=== PATIENT | male | born 1980 | race Caucasian/White ===

== ENCOUNTER 2016-08-24 23:02 | Emergency (ER) | payer OTHER ==
[~2016-08-24] VITALS: Ht 172.7 cm; Wt 76.2 kg
[2016-08-24 23:10] VITALS: BP 128/75
--- NOTE | 2016-08-25 01:05 | NUR ---
PT TAKEN TO BED 4
--- NOTE | 2016-08-25 01:14 | NUR ---
35Y/M PATIENT PRESENTS TO ED WITH C/O LOWER BACK PAIN X 1 DAY. PT STATES PAIN STARTED TODAY, NO INJURY, NO FEVER . DENIES N/V/D; SKIN IS PINK/WARM/DRY; AAOX4 WITH EVEN AND STEADY GAIT; LUNGS CLEAR BL; HR EVEN AND REGULAR; PT DENIES ANY FEVER, CP, SOB, OR COUGH AT THIS TIME; PATIENT STATES PAIN OF 3/10 AT THIS TIME; VSS; PATIENT POSITIONED FOR COMFORT; HOB ELEVATED; BEDRAILS UP X2; BED DOWN. ER MD MADE AWARE OF PT STATUS.
--- NOTE | 2016-08-25 01:27 | NUR ---
Dr. Aceves evaluating patient at bedside.
[2016-08-25] MEDS ORDERED: KETOROLAC 30 MG/ML VIAL IM ONE (01:30)
[2016-08-25] MEDS ORDERED: DIAZEPAM 5 MG TAB PO ONE (01:30)
--- NOTE | 2016-08-25 02:51 | NUR ---
Patient discharged with v/s stable. Written and verbal after care instructions given and explained. Patient alert, oriented and verbalized understanding of instructions. Ambulatory with steady gait. All questions addressed prior to discharge. ID band removed. Patient advised to follow up with PMD. Rx of NAPROSYN 500MG AND VALIUM 5MG given. Patient educated on indication of medication including possible reaction and side effects. Opportunity to ask questions provided and answered.
[2016-08-25 02:52] VITALS: BP 131/74
== END 2016-08-25 02:51 | disposition home or self-care (01) ==
LOC: MED 23:02
DX: M54.6 Pain in thoracic spine (principal)
CPT/HCPCS: 71010; 96372; 99283; J1885; Q0092

== ENCOUNTER 2017-09-18 22:03 | Emergency (ER) | payer OTHER ==
[~2017-09-18] VITALS: Ht 172.7 cm; Wt 74.8 kg
[2017-09-18 22:08] VITALS: BP 112/76
--- NOTE | 2017-09-18 22:12 | NUR ---
TO BED # 6 AMBULATORY
--- NOTE | 2017-09-18 22:15 | NUR ---
PATIENT PRESENTS TO ED WITH COUGH, RUNNY NOSE, EVALUATED AT BEDSIDE BY DR. MAZA. PT DENIES N/V/D; SKIN IS PINK/WARM/DRY; AAOX4 WITH EVEN AND STEADY GAIT; LUNGS CLEAR BL; HR EVEN AND REGULAR; PT DENIES ANY FEVER, CP, SOB, OR COUGH AT THIS TIME; PATIENT STATES PAIN OF 0/10 AT THIS TIME; VSS; PATIENT POSITIONED FOR COMFORT; HOB ELEVATED; BEDRAILS UP X1; BED DOWN. ER MD MADE AWARE OF PT STATUS. CONTINUE TO MOONITOR.
[2017-09-18 22:31] VITALS: BP 112/76
--- NOTE | 2017-09-18 22:31 | NUR ---
Patient discharged with v/s stable. Evaluated and discharged by Dr. Connell. Written and verbal after care instructions given and explained. Patient alert, oriented and verbalized understanding of instructions. Ambulatory with steady gait. All questions addressed prior to discharge. ID band removed. Patient advised to follow up with PMD. Rx of aUGMENTIN AND PROMETHAZINE given. Patient educated on indication of medication including possible reaction and side effects. Opportunity to ask questions provided and answered.
== END 2017-09-18 22:31 | disposition home or self-care (01) ==
LOC: MED 22:03
DX: J20.9 Acute bronchitis, unspecified (principal)
CPT/HCPCS: 99283

== ENCOUNTER 2018-08-02 04:53 | Emergency (ER) | payer OTHER ==
[~2018-08-02] VITALS: Ht 172.7 cm; Wt 77.1 kg
[2018-08-02 04:56] VITALS: BP 115/78
--- NOTE | 2018-08-02 04:56 | NUR ---
TO BED # 8 AMBULATORY .
--- NOTE | 2018-08-02 05:00 | NUR ---
PATIENT PRESENTS TO ED WITH C/O SORE THROAT, NON PRODUCTIVE COUGH X 1 DAY . PT DENIES N/V/D; SKIN IS PINK/WARM/DRY; AAOX4 WITH EVEN AND STEADY GAIT; LUNGS CLEAR BL; HR EVEN AND REGULAR; PT DENIES ANY FEVER, CP, SOB, AT THIS TIME; PATIENT STATES PAIN OF 6/10 AT THIS TIME; VSS; PATIENT POSITIONED FOR COMFORT; HOB ELEVATED; BEDRAILS UP X2; BED DOWN. ER MD MADE AWARE OF PT STATUS.
--- NOTE | 2018-08-02 05:05 | NUR ---
Patient being evaluated by physician at bedside.
--- NOTE | 2018-08-02 05:06 | NUR ---
Patient discharged with v/s stable. Written and verbal after care instructions given and explained. N Patient alert, oriented and verbalized understanding of instructions. Ambulatory with steady gait. All questions addressed prior to discharge. ID band removed. Patient advised to follow up with PMD. Rx of PREDNISONE AND MOTRIN given. Patient educated on indication of medication including possible reaction and side effects. Opportunity to ask questions provided and answered.
[2018-08-02 05:08] VITALS: BP 115/78
== END 2018-08-02 05:08 | disposition home or self-care (01) ==
LOC: MED 04:53
DX: J02.9 Acute pharyngitis, unspecified (principal); R07.9 Chest pain, unspecified
CPT/HCPCS: 99283

== ENCOUNTER 2018-08-30 06:05 | Emergency (ER) | payer OTHER ==
[~2018-08-30] VITALS: Ht 167.6 cm; Wt 72.6 kg
[2018-08-30 06:25] VITALS: BP 119/84
--- NOTE | 2018-08-30 06:25 | NUR ---
PT PRESENTS TO ER WITH C/O COUGH, SORE THROAT, AND NASAL CONGETIONS X3 WEEKS. WAS PERSCRIBED PREDNISONE 3 WEEKS AGO BUT STOPPED TAKING IT D/T NAUSEA AND NERVOUSNESS AFTER TAKING MEDICATION. BURNING IN CHEST WITH COUGH. LUNGS CLEAR BILAT THROUGHOUT. PRODUCTIVE COUGH WITH CLEAR PHLEGM. AFEBRILE. VSS. POSTIONED IN BED FOR COMFORT WITH HOB ELEVATED. X1 RAIL UP. ER MD AWARE. CONTINUE TO MONITOR.
--- NOTE | 2018-08-30 06:25 | NUR ---
PT AMBULATED TO BED 7.
[2018-08-30 07:00] VITALS: BP 119/84
--- NOTE | 2018-08-30 07:00 | NUR ---
DISCHARGE PAPERWORK GIVEN. 08/21 PAIN BUT TOLERABLE. AFEBRILE. VSS. RX OF PREDNISONE AND MOTRIN GIVEN. SIDE EFFECTS EXPLAINED. INSTRUCED TO F/U WITH PCP AND WHEN TO RETURN TO ED. PT VERBALIZED DC INSTRUCTIONS. ALL QUESTOINS ANSWERED.
== END 2018-08-30 07:00 | disposition home or self-care (01) ==
LOC: MED 06:05
DX: J02.9 Acute pharyngitis, unspecified (principal); R05 Cough
CPT/HCPCS: 99283

== ENCOUNTER 2020-07-06 21:44 | Emergency (ER) | payer MEDICAID, OTHER ==
[~2020-07-06] VITALS: Ht 170.2 cm; Wt 79.4 kg
[2020-07-06 22:07] VITALS: BP 135/82
[2020-07-07 00:43] VITALS: BP 135/82
== END 2020-07-07 00:43 | disposition home or self-care (01) ==
LOC: MED 21:44
DX: I86.1 Scrotal varices (principal); N50.812 Left testicular pain
CPT/HCPCS: 76870; 81002; 99284

== ENCOUNTER 2020-07-17 12:33 | Emergency (ER) | payer MEDICAID ==
[~2020-07-17] VITALS: Ht 172.7 cm; Wt 77.1 kg
[2020-07-17 12:34] VITALS: BP 140/78
[2020-07-17 13:22] LABS: APPEARANCE,URINE CLEAR (CLEAR); BILIRUBIN,URINE NEGATIVE (NEGATIVE); BLOOD, URINE NEGATIVE (NEGATIVE); COLOR,URINE YELLOW (YELLOW); LEUKOCYTE ESTERASE ,URINE NEGATIVE (NEGATIVE); NITRITE, URINE NEGATIVE (NEGATIVE); PH,URINE 7.5 (5.0-9.0); UGLUCOSE NEGATIVE (NEGATIVE)
[2020-07-17 13:31] LABS: BASOPHILS # (AUTO) 0.1 K/uL (0.00-0.22); BASOPHILS % (AUTO) 0.9 % (0.0-2.0); EOSINOPHILS # (AUTO) 0.1 K/uL (0-0.4); EOSINOPHILS % (AUTO) 0.8 % (0.0-4.0); HEMATOCRIT 44.4 % (36-52); HEMOGLOBIN 15.3 g/dL (12.0-18.0); LYMPHOCYTES # (AUTO) 2.1 K/uL (2.0-11.5); LYMPHOCYTES % (AUTO) 28.2 % (20.5-51.1); MEAN CORPUSCULAR HEMOGLOBIN 31 pg (27-31); MEAN CORPUSCULAR HGB CONC 34 g/dL (33-37); MEAN CORPUSCULAR VOLUME 88.6 fL (80-94); MONOCYTES # (AUTO) 0.4 K/uL (0.8-1.0); MONOCYTES % (AUTO) 5.7 % (1.7-9.3); NEUTROPHILS # (AUTO) 4.8 K/uL (1.8-7.7); NEUTROPHILS % (AUTO) 64.4 % (42.2-75.2); PLATELET COUNT (AUTO) 212 K/uL (140-450); RED BLOOD CELL COUNT(AUTO) 5.01 MIL/uL (4.20-6.10); RED CELL DISTRIBUTION WIDTH 13.6 % (11.6-13.7); WHITE BLOOD COUNT (AUTO) 7.4 K/uL (4.8-10.8)
[2020-07-17 13:48] LABS: ALBUMIN 4.3 g/dL (3.4-5.0); ANION GAP 12.1 (8-16); CARBON DIOXIDE 27.5 mmol/L (21-32); CREATININE 1.1 mg/dL (0.6-1.3); POTASSIUM 3.6 mmol/L (3.5-5.1); TOTAL BILIRUBIN 0.7 mg/dL (0.0-1.0)
[2020-07-17] MEDS ORDERED: DOXY100C9 PO (14:11)
[2020-07-17 14:19] VITALS: BP 140/78
== END 2020-07-17 14:18 | disposition home or self-care (01) ==
LOC: MED 12:33
DX: N34.2 Other urethritis (principal); Z79.899 Other long term (current) drug therapy
CPT/HCPCS: 36415; 80053; 81003; 83690; 85025; 87491; 99283